=== PATIENT | female | born 1960 | race American Indian/Alaskan Native ===

== ENCOUNTER 2017-10-20 05:49 | Day surgery (SDC) | payer OTHER ==
[2017-10-07 11:34] VITALS: BMI 28.0
[2017-10-20] MEDS ORDERED: Lidocaine Hydrochloride 0 ML INJ ONE (08:03)
[2017-10-20] MEDS ORDERED: Propofol 10 mg/ml Inj (20 ML) ONE ×2 (08:03→08:19)
[2017-10-20] MEDS ORDERED: Bupivacaine 0.25% 20 ML INJ IJ ONE (08:03)
[2017-10-20] MEDS ORDERED: Midazolam 2 MG/2 ML VIAL ONE (08:03)
[2017-10-20] MEDS ORDERED: ceFAZolin IV 1 gm in Dextrose 1 GM/50 ML BAG IVPB ONE (08:03)
[2017-10-20] MEDS ORDERED: Bacitracin 500 Units/gm Oint Foilpak UD ONE (08:07)
[2017-10-20] MEDS ORDERED: Oxycodone/Acetaminophen 5/325 mg Tab PO PRN ×2 (09:22)
[2017-10-20] MEDS ORDERED: Lactated Ringer's 1,000 ML IV SCH (09:30)
[2017-10-20] MEDS ORDERED: HYDROmorphone 0.5 mg/0.5 ml ISec IVP PRN (09:30)
--- NOTE | 2017-10-20 09:30 | PCM.SURG1 ---
Surgeon's Initial Post Op Note - Surgeon's Notes Surgeon: Dr. Thomas Ticker Installer: Dr. Alejo PGY1 Dr. Clemons PGY1 Type of Anesthesia: IV Sedation, Local Anesthesia Administered By: Jesus Manuel Pre-Operative Diagnosis: B/l ingrown toenail of hallux Operative Findings: see dictation. I 20 cc 1:1 mix 0.25% marcaine plain 1% lidocaine plain. M 4-0 nylon Post-Operative Diagnosis: same Operation Performed: 1. b/l exostectomy of distal phalanx hallux 2. partial nail avulsion b/l hallux Specimen/Specimens Removed: debrided tissue of b/l hallux Estimated Blood Loss: EBL {In ML}: 5 Blood Products Given: N/A Drains Used: No Drains Post-Op Condition: Good Date of Surgery/Procedure: 10/20/17 Time of Surgery/Procedure: 09:30
[2017-10-20 11:05] VITALS: BP 115/74; PULSE 86; RESP 18; TEMP 97.4; O2SAT 100
== END 2017-10-20 11:32 | disposition home or self-care (01) ==
LOC: C.SDS 05:49
PROVIDERS: ATTEND Podiatrist Foot Surgery
DX: M25.775 Osteophyte, left foot (principal); M25.774 Osteophyte, right foot; L60.0 Ingrowing nail
CPT/HCPCS: 11044; 11730; 88304; J0690; J2250; J2704; J3010

== ENCOUNTER 2018-07-16 11:14 | Outpatient (CLI) | payer OTHER | END 2018-07-16 11:15 | disposition home or self-care (01) | LOC: C.USIC 11:14 | DX: E04.2 Nontoxic multinodular goiter (principal) ==

== ENCOUNTER 2018-07-22 08:06 | Outpatient (CLI) | payer OTHER | END 2018-07-22 08:07 | disposition home or self-care (01) | LOC: C.NUCMED 08:06 | DX: E04.2 Nontoxic multinodular goiter (principal) ==